=== PATIENT | male | born 1955 | race Caucasian/White ===

== ENCOUNTER 2017-10-21 10:28 | Observation (INO) | payer OTHER ==
[2017-10-21] MEDS ORDERED: ONDANSETRON 4 MG/2 ML VIAL IVP ONE (10:40)
[2017-10-21] MEDS ORDERED: NS 1,000 ML IV ONE ×4 (10:40→14:56)
[2017-10-21 10:56] LABS: PLATELET COUNT 180 10^3/uL (150-400)
--- NOTE | 2017-10-21 11:17 | EDPHY ---
H & P Stated Complaint: cold s/sx last wednesday, now iw fever n/d Time Seen by Provider: 10/21/17 10:44 HPI/ROS: This patient reports a 5 day history of illness that started on Wednesday with rhinorrhea and a dry cough this is initial symptoms. However, over the past 48 hr he has developed fevers to 101 associated with diffuse myalgias. He also reports chills associated with this and nausea but no vomiting. He had an episode of loose stool this morning associated with the symptoms. He was seen by Dr. slater this morning, his primary care physician who ordered a chest x-ray that reveals no focal infiltrates. He also had a negative rapid flu I his primary care physician's office and due to ongoing symptoms he was sent here for further evaluation. ROS:-fatigue and other constitutional symptoms as per HPI. HEENT: Mild sinus pressure associated with his coryza. He states this, from any gets a cold. No ear pain. No sore throat. Pulmonary: No shortness of breath or wheezing. No pleuritic pain. Cardiovascular: Positive lightheadedness but no syncope. No chest pain. GI: Crampy epigastric discomfort is mild in intensity present over the past 48 hr. : No urinary symptoms. No flank pain. No testicle pain. Integumentary: Recently diagnosed with lichen planus. No other skin rash. Endocrine: No complaints Complete review of symptoms is otherwise negative. Source: Patient Exam Limitations: No limitations - Medical/Surgical History PMH: Hypothyroid IgA deficiency Other PMH: anxiety, hypothyroidism, IGA def - Family History Significant Family History: No pertinent family hx - Social History Smoking Status: Never smoked Alcohol Use: None Drug Use: None Additional Social History: The no recent foreign travel. No suspect food - Physical Exam Exam: Fever of 37.5. Other vital signs normal except for an O2 sat of 93% room air General Appearance: Alert, no distress. Eyes: Pupils equal and round no pallor or injection. ENT, Mouth: Mucous membranes moist. Nose: Clear discharge bilaterally with mild sinus tenderness to percussion and frontal maxillary sinuses bilaterally. Oropharynx: No erythema or exudates. No dysphonia. Respiratory: There are no retractions, lungs are clear to auscultation. No rales or rhonchi. Cardiovascular: Regular rate and rhythm. No murmur gallop or rub. Gastrointestinal: Abdomen is soft and nontender, no masses, bowel sounds normal. : No CVA tenderness. No testicular or epididymal tenderness or swelling. Rectal exam: Prostate is mildly enlarged but not tender on exam. Brown stool Hemoccult pending Neurological: GCS 15. With no focal deficits. Skin: Warm and dry, no rashes. Musculoskeletal: Neck is supple nontender. Extremities are symmetrical, full range of motion. Psychiatric: Mood and affect are normal DIFFERENTIAL DIAGNOSIS: After history and physical exam differential diagnosis was considered for viral syndrome, influenza a, sinusitis, gastroenteritis, UTI , prostatitis Constitutional: Initial Vital Signs Temperature (C) 37.5 C 10/21/17 10:37 Heart Rate 79 10/21/17 10:37 Respiratory Rate 18 10/21/17 10:37 Blood Pressure 124/68 H 10/21/17 10:37 O2 Sat (%) 93 10/21/17 10:37 O2 Delivery Mode Nasal Cannula O2 (L/minute) 2 Allergies/Adverse Reactions: No Known Allergies Allergy (Verified 10/21/17 17:45) Home Medications: Medication Instructions Recorded Brimonidine 0.1% [ALPHAGAN P 0.1% 1 drops EACHEYE DAILY 10/21/17 (*)] Escitalopram Oxalate [Lexapro] 5 mg PO DAILY 10/21/17 Levothyroxine [Synthroid 200 mcg 200 mcg PO DAILY06 10/21/17 (*)] prednisoLONE ACET 1% [Pred Forte 1 drops EACHEYE DAILY 10/21/17 1% (*)] Acetaminophen [Tylenol ES 500 mg 500 - 1,000 mg PO Q6HRS PRN tab 10/22/17 (*)] Azithromycin [Zithromax] 250 mg PO ONCE #4 tab 10/22/17 Ibuprofen [Motrin (*)] 400 mg PO Q4HRS PRN tab 10/22/17 cycloSPORINE 0.05% [Restasis Opht 1 drop EACHEYE BID droperette 10/22/17 Drops(*)] Medical Decision Making - Diagnostics EKG Interpretation: 12 lead EKG performed at 1148 Indication dyspnea nausea rule out ischemic cardiac disease Sinus rhythm at 82 Intervals: Normal throughout [place]: P of -12, QRS of 44, T of -12 ST segments borderline flat T-waves in AVF otherwise normal throughout by my interpretation. Imaging: Discussed imaging studies w/ on call pharmacy technician Radiologist (The chest x-ray was already read by the radiologist after being ordered by Dr. Braga. I also reviewed this chest x-ray.) ED Course/Re-evaluation: IV, Zofran Normal saline bolus -1 L The patient developed mild hypoxia on room air to the high 80s. With his cough and flu-like presentation possibility of a viral bronchitis causing hypoxia is entertained. I treated him with albuterol neb in [facility] [place] without improvement in his O2 sats. Repeat O2 sats 86% after nebs on room air with good waveform. He is placed on 2 L nasal cannula to maintain O2 sats in the 90s. After his 1st L boluses blood pressure decreased to 86 systolic on a manual BP check at the same time he has similar readings. 2nd L bolus, blood cultures obtained and lactate sent. His BP improved to 106 systolic with 2nd L normal saline. I arrange for admission for observation for further evaluation and treatment. Review of his labs reveals normal CBC with exception of increased monocytes, PCR influenza pending, electrolytes normal, venous lactate normal, urinalysis reveals 10 WBCs, 10 RBCs and 1+ bacteria leuk esterase negative 2+ positive ketones. D-dimer was performed given hypoxia and clear sounding lungs and this is normal. Troponin is also normal with an EKG that revealed a length borderline inferior abnormalities but no charisse evidence of ischemic cardiac disease. 3rd L saline started with BP back down to low 90s so 3rd L increased bolus rate. Discussion: Patient presents with URI in fever/influenza like symptoms for 5 days with fever for 48 hr with no exam findings or radiographic findings that would suggest pneumonia. He has borderline findings for UTI, and given his worsening clinical status with hypotension, I will cover potential prostatitis or early pyelonephritis with ceftriaxone. However he did not have prostate tenderness or CVA tenderness on exam. I think that his hypotension is primarily from dehydration. However early sepsis is another possibility. Also covered him with the dose of Tamiflu as the PCR influenza was still pending. At the time of transfer the patient has persistent mild hypotension in high 90s but feels no lightheadedness and appears well perfused, stable on nasal cannula O2. - Data Points Laboratory Results: Laboratory Results 10/21/17 10:50 10/21/17 10:50 Medications Given: Discontinued Medications Acetaminophen (Tylenol) 1,000 mg PO EDNOW ONE Stop: 10/21/17 13:10 Last Admin: 10/21/17 13:22 Dose: 1,000 mg Albuterol (Proventil Neb) 3 ml IH EDNOW ONE Stop: 10/21/17 11:19 Last Admin: 10/21/17 11:23 Dose: 3 ml Albuterol/Ipratropium (Duoneb) 3 ml IH EDNOW ONE Stop: 10/21/17 12:42 Last Admin: 10/21/17 12:45 Dose: 3 ml Azithromycin (Zithromax) 500 mg PO ONCE ONE PRN Reason: Protocol Stop: 10/22/17 11:24 Last Admin: 10/22/17 12:12 Dose: 500 mg Brimonidine Tartrate (Alphagan P 0.1%) 1 drops EACHEYE HS [facility] Stop: 04/19/18 23:29 Last Admin: 10/21/17 23:06 Dose: 1 drops Cyclosporine (Restasis) 1 drop EACHEYE ONCE ONE Stop: 10/22/17 00:01 Last Admin: 10/21/17 23:57 Dose: 1 drops Cyclosporine (Restasis) 1 drop EACHEYE BID [facility] Stop: 04/20/18 08:59 Last Admin: 10/22/17 08:27 Dose: 1 drop Sodium Chloride (Ns) 1,000 mls @ 0 mls/hr IV EDNOW ONE; Wide Open PRN Reason: Protocol Stop: 10/21/17 10:41 Last Admin: 10/21/17 11:04 Dose: 1,000 mls Sodium Chloride (Ns) 1,000 mls @ 0 mls/hr IV ONCE ONE; Wide Open PRN Reason: Protocol Stop: 10/21/17 12:51 Last Admin: 10/21/17 13:05 Dose: 1,000 mls Sodium Chloride (Ns) 1,000 mls @ 0 mls/hr IV ONCE ONE; As Directed PRN Reason: Protocol Stop: 10/21/17 13:43 Last Admin: 10/21/17 13:48 Dose: 1,000 mls Ceftriaxone Sodium 1 gm/ (Sodium Chloride) 100 mls @ 200 mls/hr IV EDNOW ONE PRN Reason: Protocol Stop: 10/21/17 14:22 Last Admin: 10/21/17 14:06 Dose: 100 mls Sodium Chloride (Ns) 1,000 mls @ 0 mls/hr IV EDNOW ONE; Wide Open PRN Reason: Protocol Stop: 10/21/17 14:57 Last Admin: 10/21/17 14:59 Dose: 1,000 mls Sodium Chloride (Ns) 1,000 mls @ 100 mls/hr IV CONT YVETTE Stop: 04/19/18 17:29 Last Admin: 10/22/17 04:32 Dose: 1,000 mls Ketorolac Tromethamine (Toradol) 15 mg IVP EDNOW ONE Stop: 10/21/17 11:19 Last Admin: 10/21/17 11:23 Dose: 15 mg Levothyroxine Sodium (Synthroid) 200 mcg PO DAILY06 [facility] Stop: 04/20/18 05:59 Last Admin: 10/22/17 04:29 Dose: 200 mcg Miscellaneous Medication (Escitalopram Oxalate [Lexapro]) 5 mg PO DAILY YVETTE Stop: 04/20/18 08:59 Last Admin: 10/22/17 08:27 Dose: 2.5 mg Ondansetron HCl (Zofran) 4 mg IVP EDNOW ONE Stop: 10/21/17 10:41 Last Admin: 10/21/17 11:04 Dose: 4 mg Oseltamivir Phosphate (Tamiflu) 75 mg PO EDNOW ONE Stop: 10/21/17 13:03 Last Admin: 10/21/17 13:07 Dose: 75 mg Prednisolone Acetate (Pred Forte 1%) 1 drops EACHEYE [facility] Stop: 04/19/18 23:29 Last Admin: 10/21/17 23:07 Dose: 1 drop Departure - Departure Disposition: [facility] Acute Clinical Impression: Pyuria, Dehydration, Hypoxia, Viral URI with cough Fever Qualifiers: Fever type: unspecified Qualified Code(s): R50.9 - Fever, unspecified Condition: Good
[2017-10-21] MEDS ORDERED: ALBUTEROL 3 ML DEYVIAL IH ONE (11:18)
[2017-10-21] MEDS ORDERED: KETOROLAC 15 MG/1 ML SDV IVP ONE (11:18)
--- NOTE | 2017-10-21 11:50 | CPEKG ---
Heart Rate: 82 RR Interval: 732 P-R Interval: 152 QRSD Interval: 108 QT Interval: 376 QTC Interval: 439 P [place]: -12 QRS [place]: 44 T Wave [place]: -12 EKG Severity - BORDERLINE ECG - EKG Impression: SINUS RHYTHM EKG Impression: BORDERLINE T ABNORMALITIES, INFERIOR LEADS Electronically Signed By: Bruce Cam 21-Oct-2017 14:13:30
[2017-10-21] MEDS ORDERED: IPRATROPIUM/ALBUTEROL 3 ML DEYVIAL IH ONE (12:41)
[2017-10-21] MEDS ORDERED: OSELTAMIVIR PHOSPHATE 75 MG CAP PO ONE (13:02)
[2017-10-21] MEDS ORDERED: ACETAMINOPHEN 500 MG TAB PO ONE (13:09)
[2017-10-21] MEDS ORDERED: ONDANSETRON DISINTEGRATING 4 MG TAB PO PRN (17:25)
[2017-10-21] MEDS ORDERED: ONDANSETRON 4 MG/2 ML VIAL IVP PRN (17:25)
[2017-10-21] MEDS ORDERED: IBUPROFEN 200 MG TAB PO PRN (17:25)
[2017-10-21] MEDS ORDERED: ACETAMINOPHEN 500 MG TAB PO PRN (17:25)
[2017-10-21] MEDS: NS 1,000 ML IV SCH (17:37)
--- NOTE | 2017-10-21 18:14 | GHP ---
[f rep st] HISTORY AND PHYSICAL DATE OF ADMISSION: 10/21/2017 CHIEF COMPLAINT: Cough and sore throat. HISTORY OF PRESENT ILLNESS: This is a 62-year-old male, who presents with about 5 days of sore throa t, nasal congestion, cough, myalgias, and chills. He has had poor p.o. intake. No diarrhea. He has had fevers up to 101 yesterday. He states that his sputum started turning green today. [place] [facility] blood pressure has been low in the 80s, with some variable response to fluids. The patient denies a ny dizziness. He denies any back pain and dysuria. REVIEW OF SYSTEMS: A 10-point review of systems was obtained and other than stated, it was negative. PAST MEDICAL HISTORY: IgA deficiency and hypothyroidism. MEDICATIONS: Reviewed. SOCIAL HISTORY: No smoking or alcohol. FAMILY HISTORY: Reviewed and negative. PHYSICAL EXAMINATION: VITAL SIGNS: Afebrile. Blood pressure 83/53, heart rate 77, oxygen saturatio n 93% on 1 L. GENERAL: The patient is well developed and in no apparent distress. HEENT: Nonicter ic sclerae. Extraocular movements intact. Dry mucous membranes. NECK: Supple. No thyromegaly. L UNGS: Good effort. Clear to auscultation bilaterally. CARDIOVASCULAR: Regular rate and rhythm. N o murmurs, rubs, or gallops. ABDOMEN: Positive bowel sounds. Soft, nontender, nondistended. No he patosplenomegaly. EXTREMITIES: No clubbing, cyanosis, or edema. SKIN: Without rash. Warm, dry, an d intact. NEUROLOGIC: Alert and oriented x3. Moving all extremities equally. PSYCH: Normal mood and affect. LABORATORY DATA: CBC is normal. Chemistries normal. Troponin is negative. UA shows some ketones, blood, slight white blood cells, 1+ bacteria. RSV is positive, and flu is negative. Chest x-ray, I personally reviewed and interpreted, is negative for pneumonia. EKG shows some slight T-wave flatten ing. No ischemic changes. ASSESSMENT AND PLAN: A 62-year-old male presenting with respiratory syncytial virus, possible bronch itis, hypotension, and mild hypertension. 1. Respiratory syncytial virus/possible bronchitis: The patient is developing more purulent sputum. This could be evolution to bacterial bronchitis. We will check a procalcitonin, and we will see ho w he is feeling tomorrow. He did get a dose of ceftriaxone today in the emergency department, so we can see how his response to that is and consider a short course of antibiotics. Especially curious i f his sputum color begins to clear by tomorrow. 2. Hypertension: The patient is fairly asymptomatic. His blood pressure is usually in the normal r fredi of the 120s. His lactate is normal. We will give IV fluids overnight and see what his blood pr essure does. He does state that he was not drinking very well at all in the last several days. /[id number]/MODL
[2017-10-21] MEDS ORDERED: prednisoLONE ACET 1% 5 ML OPHT.BTL EACHEYE SCH ×2 (22:45→23:30)
[2017-10-21] MEDS ORDERED: BRIMONIDINE 0.1% 5 ML OPHT.BTL EACHEYE SCH (23:30)
[2017-10-22] MEDS ORDERED: CYCLOSPORINE 0.05% EACHEYE ONE
[2017-10-22] MEDS: NS 1,000 ML IV SCH (04:32)
[2017-10-22 05:11] LABS: PLATELET COUNT 139 10^3/uL (150-400)
[2017-10-22] MEDS ORDERED: LEVOTHYROXINE 200 MCG TAB PO SCH (06:00)
[2017-10-22 08:22] VITALS: PULSE 62
[2017-10-22] MEDS ORDERED: CYCLOSPORINE 0.05% EACHEYE SCH (09:00)
[2017-10-22] MEDS ORDERED: BRIMONIDINE 0.1% 5 ML OPHT.BTL EACHEYE SCH (09:00)
[2017-10-22] MEDS ORDERED: ESCITALOPRAM OXALATE 5 MG PO SCH (09:00)
[2017-10-22] MEDS ORDERED: AZITHROMYCIN 250 MG TAB PO ONE (11:23)
[2017-10-22 12:05] VITALS: BP 99/57; RESP 18; TEMP 98.2; O2SAT 96
--- NOTE | 2017-10-22 14:53 | GDS ---
[f rep st] DISCHARGE SUMMARY DISCHARGE DIAGNOSIS: Respiratory syncytial virus. PHYSICAL EXAMINATION: GENERAL: The patient is alert, oriented. VITAL SIGNS: Afebrile at 36.8, pulse 62, respiratory rate is 18, blood pressure is 99/57, he is saturating greater than 90% on room air. I have seen and evaluated the patient on the day of discharge. HOSPITAL COURSE: The patient is a 62-year-old male who presented to the emergency room with complaints of shortness of breath. He was evaluated via a respiratory viral panel, noting RSV. He was admitted for overnight observation and initiated on azithromycin. His condition is significantly improved. He is saturating appropriately on room air and will be discharged home to follow up in the outpatient with his primary care physician. DISCHARGE MEDICATIONS: Please refer to EMR form. I have provided the patient a prescription for azithromycin. His primary care physician is Dr. Jama Braga. JAXON
--- NOTE | 2017-10-22 15:07 | ASDISCHSUM ---
Discharge Information Plan Status:Home with No Needs Medically Cleared to Leave: Discharge Date:10/22/2017 01:18 PM CM D/C Disposition:Home, Routine, Self-Care ADT D/C Disposition:Home, Routine, Self-Care Projected Discharge Date:10/22/2017 01:18 PM Transportation at D/C:Family Discharge Delay Reason: Follow-Up Date:10/22/2017 01:18 PM Discharge Slot: Final Diagnosis: Placement Information Patient Contact Information Contact Name:EM Relationship: Address:[address] Work Phone: [facility]:[place] Alternate Phone: State/Zip Code:[place] [address] Email: Financial Information Financial Class:HMO and PPO Plans Primary Plan Desc:[facility] Primary Plan Number:[id number] Secondary Plan Desc: Secondary Plan Number: Assessment Information Intervention Information
== END 2017-10-22 13:18 | disposition home or self-care (01) ==
LOC: CED 10:28 → EDSTATUS 10:28 → CEDHOLD 13:14 → UNDOADMOB 13:14 → F3E 15:31
PROVIDERS: ADMIT Internal Medicine; ATTEND Internal Medicine
DX: J00 Acute nasopharyngitis [common cold] (principal); B97.4 Respiratory syncytial virus as the cause of diseases classified elsewhere; I10 Essential (primary) hypertension; E03.9 Hypothyroidism, unspecified; D80.2 Selective deficiency of immunoglobulin A [IgA]
CPT/HCPCS: 71046; 93005; 96361; 96365; 96375; 99285; G0378; 80048-PO; 81003-PO; 81015-PO; 83605-PO; 84484-PO; 85025-PO; 85378-PO; J0696; J1885; J2405; J7613

== ENCOUNTER → 2017-11-02 | Outpatient (CLI) | payer OTHER | LOC: CIMAGING 15:25 | PROVIDERS: ATTEND Internal Medicine | DX: R61 Generalized hyperhidrosis (principal) | CPT/HCPCS: 71046-PO ==